=== PATIENT | female | born 1975 | race Caucasian/White ===

== ENCOUNTER → 2017-02-12 | Outpatient (CLI) | payer BC ==
--- NOTE | 2017-02-12 12:44 | RAD ---
EXAM: Lumbar spine, 3 views. HISTORY: Pain. COMPARISON: 08/12/2014. FINDINGS: Frontal, lateral and coned sacral views of the lumbar spine are obtained. There is minimal retrolisthesis of L5 on S1. There is disc space narrowing with endplate remodeling and vacuum phenomenon at this level. There are hypoplastic T12 ribs. IMPRESSION: 1. Degenerative changes L5-S1, increased compared to the prior study. 2. No acute osseous finding.
== END | disposition home or self-care (01) ==
LOC: DXRADRC 12:21
PROVIDERS: ATTEND Nurse Practitioner Family
DX: M47.897 Other spondylosis, lumbosacral region (principal); M54.5 Low back pain
CPT/HCPCS: 72100

== ENCOUNTER → 2021-02-23 | Outpatient (CLI) | payer BC ==
--- NOTE | 2021-02-23 12:39 | RAD ---
Exam Date: 02/23/2021 12:28 PM XR KNEE _3 [id number] Indication: Reason: LEFT KNEE PAIN / Spl. Instructions: / History: FINDINGS/ IMPRESSION: No acute fracture or dislocation. Alignment and joint spaces are maintained. There may be a joint ef fusion. Electronically signed by: Dino Ya MD (02/23/2021 12:36 PM) [id number]
== END ==
LOC: RAD 12:17
PROVIDERS: ATTEND Nurse Practitioner Family
DX: M25.562 Pain in left knee (principal)
CPT/HCPCS: 73562